=== PATIENT | male | born 1960 | race Caucasian/White ===

== ENCOUNTER 2022-04-16 16:40 | Inpatient (IN) | payer BC ==
[~2022-04-16] VITALS: Ht 185.4 cm; Wt 104.3 kg
[2022-04-16] MEDS ORDERED: ASPIRIN 81 MG CHEW TAB PO ONE (16:45)
[2022-04-16 16:54] LABS: BASOPHILS # (AUTO) 0.1 (0.0-0.1); BASOPHILS % 0.8 % (0.0-1.0); EOSINOPHILS # (AUTO) 0.3 (0.0-0.4); EOSINOPHILS % 3.4 % (0.0-6.0); HEMATOCRIT 50.1 % (38.2-49.6); HEMOGLOBIN 16.2 g/dL (14.0-18.0); LYMPHOCYTES # (AUTO) 3.6 (1.0-3.2); LYMPHOCYTES % 40.4 % (18.0-39.1); MEAN CORPUSCULAR HEMOGLOBIN 31.2 pg (28-32); MEAN CORPUSCULAR HGB CONC 32.3 g/dL (31-35); MEAN CORPUSCULAR VOLUME 96.3 fL (81-99); MONOCYTES # (AUTO) 0.6 (0.2-0.8); MONOCYTES % 6.9 % (4.4-11.3); NEUTROPHILS # (AUTO) 4.3 (2.1-6.9); NEUTROPHILS % 48.3 % (38.7-80.0); PLATELET COUNT 316 x10e3/uL (140-360); RED CELL DISTRIBUTION WIDTH 12.2 % (11.7-14.4)
[2022-04-16] MEDS ORDERED: ASPIRIN 81 MG CHEW TAB ONE (17:06)
[2022-04-16 17:07] LABS: INR 0.96
[2022-04-16 17:08] LABS: PARTIAL THROMBOPLASTIN TIME 29.7 seconds (23.8-35.5)
[2022-04-16 17:17] LABS: ALANINE AMINOTRANSFERASE 19 IU/L (0-55); ALBUMIN 3.7 g/dL (3.5-5.0); ALBUMIN/GLOBULIN RATIO 0.8 (0.8-2.0); ALKALINE PHOSPHATASE 68 IU/L (40-150); ANION GAP 15.6 mmol/L (8-16); BLOOD UREA NITROGEN 9 mg/dL (7-26); BUN/CREATININE RATIO 9 (6-25); CALCIUM 9.3 mg/dL (8.4-10.2); CARBON DIOXIDE 24 mmol/L (22-29); CHLORIDE 102 mmol/L (98-107); CREATINE KINASE 31 IU/L (30-200); GLUCOSE 182 mg/dL (74-118); POTASSIUM 3.6 mmol/L (3.5-5.1); SODIUM 138 mmol/L (136-145)
[2022-04-16] MEDS ORDERED: ENOXAPARIN SODIUM INJ 100 MG/ML SYR SC ONE ×2 (18:00→18:29)
[2022-04-16] MEDS ORDERED: Morphine 2mg Syringe 2 MG/ML SYR IV PRN (18:45)
[2022-04-16] MEDS ORDERED: ONDANSETRON HCL INJ 2MG/ML 2ML 2 MG/ML VIAL IV PRN (18:45)
[2022-04-16] MEDS: FAMOTIDINE 20 MG/2 ML VIAL IV SCH (19:50)
[2022-04-16 20:00] VITALS: BP 120/98
[2022-04-16] MEDS ORDERED: SODIUM CHLORIDE 0.9% 1000ML 1,000 ML IV SCH (20:45)
[2022-04-16] MEDS ORDERED: IOPAMIDOL 370 MG/ML 100 ML INFUS..BTL INJ ONE (20:49)
[2022-04-16] MEDS ORDERED: SODIUM CHLORIDE 0.9% 0 ML ONE (20:49)
[2022-04-16] MEDS ORDERED: SODIUM CHLORIDE 0.9% 100 ML ONE (21:03)
[2022-04-16] MEDS: ATORVASTATIN 40 MG TAB PO SCH (21:22)
[2022-04-16 22:03] VITALS: BP 120/98
[2022-04-16 22:05] VITALS: BP 120/98
[2022-04-16 22:07] VITALS: BP 120/98
[2022-04-17] VITALS (7 sets, daily range): BP systolic 116–144; BP diastolic 62–91
[2022-04-17] MEDS ORDERED: TEMAZEPAM 7.5 MG CAP PO PRN
[2022-04-17] MEDS ORDERED: METOPROLOL TARTRATE INJ 1 MG/ML VIAL IV PRN
[2022-04-17] MEDS ORDERED: POLYETHYLENE GLYCOL 3350 17 GM PACK PO PRN
[2022-04-17] MEDS ORDERED: ACETAMINOPHEN 325 MG TAB PO PRN
[2022-04-17] MEDS: FAMOTIDINE 20 MG/2 ML VIAL IV SCH ×2 (05:51→16:46)
[2022-04-17 06:01] LABS: BASOPHILS # (AUTO) 0.1 (0.0-0.1); BASOPHILS % 0.7 % (0.0-1.0); EOSINOPHILS # (AUTO) 0.3 (0.0-0.4); EOSINOPHILS % 4.1 % (0.0-6.0); HEMATOCRIT 48.2 % (38.2-49.6); HEMOGLOBIN 15.5 g/dL (14.0-18.0); LYMPHOCYTES # (AUTO) 2.7 (1.0-3.2); LYMPHOCYTES % 32.1 % (18.0-39.1); MEAN CORPUSCULAR HEMOGLOBIN 31.1 pg (28-32); MEAN CORPUSCULAR HGB CONC 32.2 g/dL (31-35); MEAN CORPUSCULAR VOLUME 96.8 fL (81-99); MONOCYTES # (AUTO) 0.7 (0.2-0.8); MONOCYTES % 8.3 % (4.4-11.3); NEUTROPHILS # (AUTO) 4.5 (2.1-6.9); NEUTROPHILS % 54.3 % (38.7-80.0); PLATELET COUNT 312 x10e3/uL (140-360); RED BLOOD COUNT 4.98 x10e6/uL (4.3-5.7); RED CELL DISTRIBUTION WIDTH 12.4 % (11.7-14.4)
[2022-04-17 06:28] LABS: ALBUMIN 3.4 g/dL (3.5-5.0); ALBUMIN/GLOBULIN RATIO 0.8 (0.8-2.0); ANION GAP 14.2 mmol/L (8-16); CALCIUM 9.2 mg/dL (8.4-10.2); CHOL/HDL RATIO 9.2 (3.9-4.7); CREATININE, SERUM 0.85 mg/dL (0.72-1.25); POTASSIUM 4.2 mmol/L (3.5-5.1)
[2022-04-17 06:51] LABS: CREATINE KINASE MB 1.2 ng/mL (0-5.0)
[2022-04-17 07:03] LABS: MAGNESIUM 1.9 MG/DL (1.3-2.1); PHOSPHORUS 2.9 MG/DL (2.3-4.7)
[2022-04-17 07:23] LABS: THYROID STIMULATING HORMONE 1.74 uIU/mL (0.350-4.940)
[2022-04-17] MEDS ORDERED: MIDAZOLAM HCL 2 MG/2 ML VIAL ONE ×2 (08:44→09:40)
[2022-04-17] MEDS ORDERED: FENTANYL CITRATE/PF 100MCG/2 ML INJ ONE (08:44)
[2022-04-17] MEDS ORDERED: SODIUM CHLORIDE 0.9% 1000ML 1,000 ML ONE (08:45)
[2022-04-17] MEDS ORDERED: IOPAMIDOL 370 MG/ML 100 ML INFUS..BTL INJ ONE (08:45)
[2022-04-17] MEDS ORDERED: HEPARIN SOD/SOD CHLORIDE 2,000 ML ONE (08:45)
[2022-04-17] MEDS ORDERED: LIDOCAINE HCL 1% 30ML-PF VIAL ONE (08:45)
[2022-04-17] MEDS ORDERED: HEPARIN SOD (PORCINE) 1000 UNIT/ML 30ML ONE (08:46)
[2022-04-17] MEDS ORDERED: NITROGLYCERIN/D5W 200 MCG/ML 250 ML ONE (08:46)
[2022-04-17] MEDS: ASPIRIN 81 MG ENTERIC COATED PO SCH (09:00)
[2022-04-17] MEDS: METOPROLOL TARTRATE 25 MG TAB PO SCH ×2 (09:00→16:46)
[2022-04-17] MEDS: DOCUSATE SODIUM 100 MG CAP PO SCH ×3 (09:00→17:00)
[2022-04-17] MEDS ORDERED: BIVALRIUDIN 250 MG/VIAL VIAL IV ONE (09:25)
[2022-04-17] MEDS ORDERED: PRASUGREL 10 MG TAB ONE (09:34)
[2022-04-17] MEDS ORDERED: ASPIRIN 325 MG TAB ONE (09:34)
[2022-04-17] MEDS ORDERED: ONDANSETRON HCL INJ 2MG/ML 2ML 2 MG/ML VIAL IV PRN (10:15)
[2022-04-17] MEDS: SODIUM CHLORIDE 0.9% 1000ML 1,000 ML IV SCH ×2 (11:46→19:58)
[2022-04-17 14:42] LABS: CREATINE KINASE MB 1.2 ng/mL (0-5.0)
[2022-04-17] MEDS ORDERED: METOPROLOL TARTRATE 25 MG TAB PO SCH (17:00)
[2022-04-17] MEDS: ATORVASTATIN 40 MG TAB PO SCH (19:58)
[2022-04-18] VITALS: BP 125/69
[2022-04-18 04:00] VITALS: BP 131/62
[2022-04-18 04:54] LABS: BASOPHILS % 0.3 % (0.0-1.0); EOSINOPHILS # (AUTO) 0.2 (0.0-0.4); EOSINOPHILS % 2.5 % (0.0-6.0); HEMATOCRIT 48.4 % (38.2-49.6); HEMOGLOBIN 15.6 g/dL (14.0-18.0); LYMPHOCYTES # (AUTO) 2.4 (1.0-3.2); LYMPHOCYTES % 27.7 % (18.0-39.1); MEAN CORPUSCULAR HEMOGLOBIN 31.1 pg (28-32); MEAN CORPUSCULAR HGB CONC 32.2 g/dL (31-35); MEAN CORPUSCULAR VOLUME 96.4 fL (81-99); MONOCYTES # (AUTO) 0.6 (0.2-0.8); NEUTROPHILS # (AUTO) 5.4 (2.1-6.9); NEUTROPHILS % 62.2 % (38.7-80.0); PLATELET COUNT 287 x10e3/uL (140-360); RED BLOOD COUNT 5.02 x10e6/uL (4.3-5.7); RED CELL DISTRIBUTION WIDTH 12.3 % (11.7-14.4)
[2022-04-18 05:02] VITALS: BP 135/76
[2022-04-18 05:16] LABS: ALBUMIN 3.4 g/dL (3.5-5.0); ALBUMIN/GLOBULIN RATIO 0.8 (0.8-2.0); CALCIUM 8.7 mg/dL (8.4-10.2); CREATININE, SERUM 0.86 mg/dL (0.72-1.25)
[2022-04-18] MEDS: SODIUM CHLORIDE 0.9% 1000ML 1,000 ML IV SCH (05:43)
[2022-04-18] MEDS: FAMOTIDINE 20 MG/2 ML VIAL IV SCH (05:43)
[2022-04-18 08:00] VITALS: BP 133/65
[2022-04-18 08:17] VITALS: BP 133/65
[2022-04-18] MEDS ORDERED: ONDANSETRON HCL 4 MG ORAL DISINTEGRATING TAB PO PRN (08:30)
[2022-04-18] MEDS ORDERED: PRASUGREL 10 MG TAB PO SCH (09:00)
[2022-04-18] MEDS: METOPROLOL TARTRATE 25 MG TAB PO SCH (09:24)
[2022-04-18] MEDS: DOCUSATE SODIUM 100 MG CAP PO SCH (09:24)
[2022-04-18] MEDS: ASPIRIN 81 MG ENTERIC COATED PO SCH (09:24)
[2022-04-18 11:34] VITALS: BP 121/73
[2022-04-18] MEDS ORDERED: Atorvastatin PO (11:48)
[2022-04-18] MEDS ORDERED: ONDANSETRON ODT4 MG PO (11:48)
[2022-04-18] MEDS ORDERED: ACETAMINOPHEN325 M1 PO (11:48)
[2022-04-18] MEDS ORDERED: LOPRESSOR25 MG PO (11:48)
[2022-04-18] MEDS ORDERED: EFFIENT10 MG PO (11:48)
[2022-04-18] MEDS ORDERED: ASPIRIN EC81 MG PO (11:48)
[2022-04-18] MEDS ORDERED: Docusate Sodium PO (11:48)
== END 2022-04-18 12:43 | disposition home or self-care (01) | DRG 247 ==
LOC: ER 16:45 → INTOOBSV 18:50 → ERHOLD 18:50 → MED/SURG 19:55 → OBSVTOIN 04-18 10:04
PROVIDERS: ADMIT Internal Medicine; ATTEND Internal Medicine
PROC: 027034Z Dilation of Coronary Artery, One Artery with Drug-eluting Intraluminal Device, Percutaneous Approach (ICD-10-PCS; principal; 2022-04-17)
PROC: 4A023N7 Measurement of Cardiac Sampling and Pressure, Left Heart, Percutaneous Approach (ICD-10-PCS; 2022-04-17)
PROC: B2111ZZ Fluoroscopy of Multiple Coronary Arteries using Low Osmolar Contrast (ICD-10-PCS; 2022-04-17)
PROC: B2151ZZ Fluoroscopy of Left Heart using Low Osmolar Contrast (ICD-10-PCS; 2022-04-17)
DX: I25.110 Atherosclerotic heart disease of native coronary artery with unstable angina pectoris (principal); R91.1 Solitary pulmonary nodule; R22.1 Localized swelling, mass and lump, neck; R16.2 Hepatomegaly with splenomegaly, not elsewhere classified; K57.90 Diverticulosis of intestine, part unspecified, without perforation or abscess without bleeding; E11.65 Type 2 diabetes mellitus with hyperglycemia; J44.9 Chronic obstructive pulmonary disease, unspecified; Z87.891 Personal history of nicotine dependence; E66.09 Other obesity due to excess calories; Z68.30 Body mass index [BMI] 30.0-30.9, adult; E11.51 Type 2 diabetes mellitus with diabetic peripheral angiopathy without gangrene; I10 Essential (primary) hypertension; Z86.16 Personal history of COVID-19; Z20.822 Contact with and (suspected) exposure to COVID-19; I71.43 Infrarenal abdominal aortic aneurysm, without rupture
CPT/HCPCS: 36415; 71045; 71275; 74174; 76536; 80053; 80061; 82550; 82553; 83036; 83735; 83880; 84100; 84443; 84484; 85025; 85379; 85610; 85730; 92928; 93005; 93306; 93880; 94799; 96361; 99152; 99153; 99284; C1725; C1760; C1876; C1887; G0378; J0583; J1644; J1650; J2001; J2250; J3010; J7030; J7050; Q9967

== ENCOUNTER 2022-05-24 08:32 | Emergency (ER) | payer BC ==
[~2022-05-24] VITALS: Ht 185.4 cm; Wt 104.3 kg
[~2022-05-24 08:32] MED LIST: ACETAMINOPHEN325 M1 PO; ASPIRIN EC81 MG PO; Atorvastatin PO; Docusate Sodium PO; EFFIENT10 MG PO; LOPRESSOR25 MG PO; ONDANSETRON ODT4 MG PO
[2022-05-24] MEDS ORDERED: ONDANSETRON HCL INJ 2MG/ML 2ML 2 MG/ML VIAL IV STA (08:43)
[2022-05-24] MEDS ORDERED: Morphine 4mg INJECTION 4 MG/ML INJ IV ONE (08:45)
[2022-05-24] MEDS ORDERED: SODIUM CHLORIDE FLUSH 10 ML SYR IV PRN (08:45)
[2022-05-24 08:57] LABS: BASOPHILS # (AUTO) 0.1 (0.0-0.1); BASOPHILS % 0.9 % (0.0-1.0); EOSINOPHILS # (AUTO) 0.4 (0.0-0.4); EOSINOPHILS % 3.9 % (0.0-6.0); HEMATOCRIT 45.6 % (38.2-49.6); HEMOGLOBIN 15.4 g/dL (14.0-18.0); LYMPHOCYTES # (AUTO) 3.1 (1.0-3.2); MEAN CORPUSCULAR HGB CONC 33.8 g/dL (31-35); MEAN CORPUSCULAR VOLUME 91.9 fL (81-99); MONOCYTES # (AUTO) 0.8 (0.2-0.8); MONOCYTES % 8.3 % (4.4-11.3); NEUTROPHILS % 53.6 % (38.7-80.0); PLATELET COUNT 307 x10e3/uL (140-360); RED BLOOD COUNT 4.96 x10e6/uL (4.3-5.7); RED CELL DISTRIBUTION WIDTH 12.8 % (11.7-14.4)
[2022-05-24 09:26] LABS: ALBUMIN 3.9 g/dL (3.5-5.0); ALBUMIN/GLOBULIN RATIO 0.8 (0.8-2.0); ANION GAP 12.9 mmol/L (8-16); CALCIUM 9.2 mg/dL (8.4-10.2); CREATININE, SERUM 0.81 mg/dL (0.72-1.25); POTASSIUM 3.9 mmol/L (3.5-5.1)
[2022-05-24 13:48] VITALS: BP 138/83
== END 2022-05-24 13:56 | disposition home or self-care (01) ==
LOC: ER 08:36
DX: R07.9 Chest pain, unspecified (principal); I10 Essential (primary) hypertension; I25.10 Atherosclerotic heart disease of native coronary artery without angina pectoris
CPT/HCPCS: 36415; 71045; 80053; 83880; 84484; 85025; 85379; 93005; 94760; 99284; J2270; J2405